=== PATIENT | male | born 1930 | race Caucasian/White ===

== ENCOUNTER → 2017-10-31 | Outpatient (CLI) | payer OTHER ==
[~2017-10-31] MED LIST: ASPIRIN325 MG PO
== END | disposition home or self-care (01) ==
LOC: AMB 10:00
PROC: 0XB40ZZ Excision of Right Axilla, Open Approach (ICD-10-PCS; principal; 2017-10-31)
DX: L72.0 Epidermal cyst (principal)
CPT/HCPCS: 88304